=== PATIENT | female | born 1950 | race Two or more races ===

== ENCOUNTER 2018-01-25 11:27 | Outpatient (CLI) | payer OTHER ==
[~2018-01-25 11:27] MED LIST: DICLOFENAC SODI50 MG PO; SYNTHROID75 MCG
== END 2018-01-25 11:50 | disposition home or self-care (01) ==
LOC: NUCLEAR 11:27
DX: M81.0 Age-related osteoporosis without current pathological fracture (principal)

== ENCOUNTER 2019-04-04 10:37 | Outpatient (CLI) | payer OTHER | END 2019-04-04 10:41 | disposition home or self-care (01) | LOC: NUCLEAR 10:37 | DX: M81.0 Age-related osteoporosis without current pathological fracture (principal) ==

== ENCOUNTER 2023-12-30 09:13 | Emergency (ER) | payer OTHER ==
[~2023-12-30] VITALS: Ht 160 cm; Wt 54.4 kg
[2023-12-30] MEDS ORDERED: KETOROLAC TROMETHAMINE 60 MG VIAL IM ONE (10:30)
[2023-12-30 10:50] LABS: HEMATOCRIT 39.8 % (36.0-45.00); HEMOGLOBIN 13.3 g/dL (12.0-15.00); MEAN CELL VOLUME 89.7 fL (80.00-100.00); MEAN CORPUSCULAR HGB CONC 33.4 g/dl (32.0-36.0); PLATELET COUNT 211 K/uL (150-450); RED BLOOD COUNT 4.43 M/uL (4.00-6.00); RED CELL DISTRIBUTION WIDTH 14.7 % (11.5-14.5)
[2023-12-30 11:33] LABS: CALCIUM 9.8 mg/dL (8.5-10.1); CREATININE SERUM 1.14 mg/dL (0.55-1.02); GFR 46.46; POTASSIUM 4.46 mEq/L (3.5-5.1)
[2023-12-30 13:05] LABS: PH,URINE 5.5 (5.0-8.0); URINE APPEARANCE Cloudy; URINE BILIRRUBIN Negative (NEGATIVE); URINE BLOOD Large; URINE COLOR Orange; URINE GLUCOSE Negative (NEGATIVE); URINE LEUKOCYTE Moderate; URINE NITRATE Negative; URINE UROBILINOGEN 0.2 E.U./dl
[2023-12-30 13:06] LABS: URINE BACTERIA 375.4 uL (0.0-1933); URINE WBC 977.6 uL (0.0-23.2)
[2023-12-30 13:28] LABS: URINE PROTEIN 100 (NEGATIVE); URINE RBC > 10558.9 uL (0.0-20.8)
[2023-12-30] MEDS ORDERED: CEFTRIAXONE SODIUM 1,000 MG VIAL IM ONE (14:00)
== END 2023-12-30 14:54 ==
LOC: ER 09:14
PROVIDERS: General Practice
DX: N39.0 Urinary tract infection, site not specified (principal); R30.0 Dysuria; Z88.6 Allergy status to analgesic agent; M19.90 Unspecified osteoarthritis, unspecified site; E03.9 Hypothyroidism, unspecified; E78.49 Other hyperlipidemia; M81.8 Other osteoporosis without current pathological fracture
CPT/HCPCS: 36415; 74176; 96372; 99284; J0696; J1885